=== PATIENT | female | born 1965 | race Caucasian/White ===

== ENCOUNTER 2023-12-06 11:14 | Outpatient (RCR) | payer OTHER, SELFPAY | END 2023-12-06 23:59 | disposition home or self-care (01) | LOC: ROT 11:14 | PROVIDERS: ATTENDING PHYSICIAN Physician Assistant | DX: M79.642 Pain in left hand (principal); Z73.6 Limitation of activities due to disability | CPT/HCPCS: 97166; 97535 ==

== ENCOUNTER → 2024-01-04 17:11 | Outpatient (REF) | payer OTHER, SELFPAY | LOC: RAD 17:11 | PROVIDERS: ATTENDING PHYSICIAN Physician Assistant; FAMILY PHYSICIAN Family Medicine | DX: R05.3 Chronic cough (principal) | CPT/HCPCS: 71046 ==

== ENCOUNTER 2024-01-27 09:32 | Outpatient (RCR) | payer OTHER, SELFPAY | END 2024-01-27 23:59 | disposition home or self-care (01) | LOC: ROT 09:32 | PROVIDERS: ATTENDING PHYSICIAN Physician Assistant | DX: M79.642 Pain in left hand (principal); Z73.6 Limitation of activities due to disability | CPT/HCPCS: 97018; 97035; 97110; 97535 ==

== ENCOUNTER 2024-02-23 10:55 | Outpatient (RCR) | payer OTHER, SELFPAY | END 2024-02-24 07:32 | disposition home or self-care (01) | LOC: ROT 10:55 | PROVIDERS: ATTENDING PHYSICIAN Physician Assistant | DX: M79.642 Pain in left hand (principal); Z73.6 Limitation of activities due to disability | CPT/HCPCS: 97018; 97140; 97535 ==

== ENCOUNTER → 2024-04-17 11:57 | Outpatient (REF) | payer OTHER, SELFPAY | LOC: PAVMRI 11:57 | PROVIDERS: ATTENDING PHYSICIAN Physician Assistant | DX: M79.642 Pain in left hand (principal) | CPT/HCPCS: 73218 ==

== ENCOUNTER → 2024-05-11 13:14 | Outpatient (REF) | payer OTHER, SELFPAY | LOC: WDC 13:14 | PROVIDERS: ATTENDING PHYSICIAN Physician Assistant; FAMILY PHYSICIAN Family Medicine | DX: Z12.31 Encounter for screening mammogram for malignant neoplasm of breast (principal) | CPT/HCPCS: 77063; 77067 ==

== ENCOUNTER 2024-12-17 19:46 | Emergency (ER) | payer OTHER, SELFPAY ==
[2024-12-17 19:49] VITALS: BP 159/59
[2024-12-17 20:15] LABS: % Basophils 0.7 % (0-2); % Eosinophils 1.5 % (0-6); % Immature Granulocytes 0.3 % (0-0.5); % Lymphocytes 11.4 % (20.5-51.1); % Monocytes 5.6 % (1.7-9.3); % Neutrophils 80.5 % (42.2-75.2); Absolute Basophils 0.1 10^3/uL (0-0.2); Absolute Eosinophils 0.2 10^3/uL (0-0.7); Absolute Lymphocytes 1.5 10^3/uL (1.2-3.4); Absolute Monocytes 0.7 10^3/uL (0.1-0.6); Absolute Neutrophils 10.6 10^3/uL (1.4-6.5); Hematocrit 39.7 % (37.0-47.0); Hemoglobin 13.3 g/dL (12.0-16.0); Mean Corp Hgb Conc. 33.5 g/dL (33.0-37.0); Mean Corpuscular Hgb 28.4 pg (27.0-31.0); Mean Corpuscular Volume 84.6 fL (81.0-99.0); Mean Platelet Volume 8.9 fL (7.4-10.4); Nucleated Red Blood Cells % 0 %; Platelet Count 405 10^3/uL (130-400); Red Blood Cell Count 4.69 10^6/uL (4.20-5.40); Red Cell Dist. Width 13.6 % (11.5-14.5); White Blood Cell Count 13.1 10^3/uL (4.8-10.8)
[2024-12-17 20:24] LABS: ALT (SGPT) 21 U/L (0-35); AST (SGOT) 28 U/L (14-36); Alkaline Phosphatase 107 U/L (38-126); Blood Urea Nitrogen 21 mg/dl (7-17); Calcium 10.4 mg/dl (8.4-10.2); Carbon Dioxide 24 mmol/L (22-30); Chloride 99 mmol/L (98-107); Glucose 142 mg/dl (70-99); Potassium 4.6 mmol/L (3.5-5.1); Sodium 138 mmol/L (135-145); Total Bilirubin 0.5 mg/dl (0.2-1.3); Total Protein 7.8 g/dl (6.3-8.2); eGFR > 60.00
[2024-12-17 21:41] VITALS: BMI 26.8
[2024-12-17] MEDS: TORADOL 15 MG IV (21:46)
[2024-12-17 21:48] VITALS: BP 143/79
[2024-12-17 22:23] LABS: Urine Albumin 2+ (Neg - Trace); Urine Bilirubin Negative (Negative); Urine Character Clear (Clear); Urine Color Yellow; Urine Glucose Negative (Negative); Urine Ketone Negative (Negative); Urine Leukocyte 1+ (Negative); Urine Nitrite Negative (Negative); Urine Occult Blood 4+ (Negative); Urine Urobilinogen Negative (Neg - 1+)
[2024-12-17 22:32] LABS: Urine Calcium Oxalate Crystals Present; Urine Squamous Cell None seen /LPF (Few)
[2024-12-17 22:33] LABS: Urine Red Blood Cell >100 /HPF (0-2)
[2024-12-17 22:35] LABS: Urine Bacteria Few (Negative)
[2024-12-17] MEDS: FLOMAX 0.4 MG PO (23:20)
--- NOTE | 2024-12-17 23:47 | ED.GENMED ---
History of Present Illness
General
Chief Complaint: Flank Pain
Source: patient
Exam Limitations: none
Time Seen by Provider: 12/17/24 20:59
Nursing documentation reviewed up to this point in time: agreed with
History of Present Illness
History of Present Illness:
59-year-old female presenting to the emergency department today with concerns of sudden onset of left flank pain a few hours prior to arrival to the emergency department. Also with nausea no vomiting. Denies any fevers chest pain shortness of
breath.
Past History
Past History
ED Past Medical History: Asthma
ED Past Surgical History: None
Social History
Tobacco: Non-smoker
Alcohol: None
Drug: None
Personal:
Living: with family
Review of Systems
Review of Systems
Allergies reviewed?: Yes
All Other Systems: ROS reviewed and negative except as documented in HPI and ROS
Phy Exam
Physical Exam
Physical Exam:
GENERAL: Alert , in no apparent distress
EYE: pupils equal and reactive
NECK: Supple, no significant adenopathy.
ENT: o/p clr, mmm.
CARDIAC: Regular rate and rhythm .
LUNGS: Clear breath sounds bilaterally, no acute respiratory distress, no wheezes/rales/rhonchi
ABDOMEN: Soft, without focal tenderness, no r/g, no cvat
NEUROLOGICAL: Alert and oriented, no focal neuro deficits
SKIN: Warm and dry, skin intact.
MUSCULOSKELETAL: No edema, well perfused.
PSYCH: Normal and appropriate interaction.
Course
Orders/Labs/Results
Orders:
Orders
12/17/24 19:56
CMP [Comprehensive Metabolic Panel] Urgent
Complete Blood Count/With Diff Urgent
12/17/24 21:31
CT Abd/pel Without Iv Or Oral Urgent
Comment:
Reason For Exam: left flank pain
Ketorolac [Toradol] 15 mg IV NOW STA
12/17/24 22:11
Urinalysis Reflex To Culture Urgent
Date Specimen was Collected: 12/17/24
Time Specimen was Collected: 21:40
Urine Microscopic Reflex Cult Urgent
Urine Culture Urgent
[facility] Source: U
Specimen Description:
Date Specimen was Collected: 12/17/24
Time Specimen was Collected: 21:40
12/17/24 23:05
Tamsulosin [Flomax] 0.4 mg PO NOW STA
Abnormal Lab Results
12/17/24 12/17/24
19:56 22:11
WBC 13.1 H 10^3/uL
(4.8-10.8)
Plt Count 405 H 10^3/uL
(130-400)
Absolute Neuts (auto) 10.6 H 10^3/uL
(1.4-6.5)
Absolute Monos (auto) 0.7 H 10^3/uL
(0.1-0.6)
Neutrophils % 80.5 H %
(42.2-75.2)
Lymphocytes % 11.4 L %
(20.5-51.1)
BUN 21 H mg/dl
(7-17)
Glucose 142 H mg/dl
(70-99)
Calcium 10.4 H mg/dl
(8.4-10.2)
Ur Occult Blood Reflex 4+ A
(Negative)
Leukocyte Esterase Rfl 1+ A
(Negative)
Urine RBC >100 A /HPF
(0-2)
Urine Bacteria (Reflex) Few A
(Negative)
Urine Albumin (Reflex) 2+ A
(Neg - Trace)
12/17/24 19:56
12/17/24 19:56
Vital Signs
Initial and Last Documented VS:
Initial Vital Signs
Temp Pulse Resp BP Pulse Ox
98.4 F 71 18 159/59 99
12/17/24 19:49 12/17/24 19:49 12/17/24 19:49 12/17/24 19:49 12/17/24 19:49
Last Documented Vital Signs
Temp Pulse Resp BP Pulse Ox
98.4 F 71 18 143/79 94
12/17/24 19:49 12/17/24 19:49 12/17/24 19:49 12/17/24 21:48 12/17/24 22:30
MDM/Problems Addressed
MDM/Problems Addressed:
59-year-old female presenting to the emergency department today with concerns of left-sided flank pain. Here vital signs are normal patient is afebrile slight white count of 13.1 otherwise labs without emergent findings urinalysis with red blood
cells but no evidence of infection. CT scan confirming 3 mm stone symptoms well-controlled here otherwise patient stable for outpatient management. Return precautions given.
*Critical Care Note
Total Time (30-74mins, 75-104mins- exclusive of procedures): Not Applicable
ED Attending Note
-
Portions of this chart may have been created with voice recognition software.� Occasional wrong word or��sound alike� substitutions may have occurred due to the inherent limitations of voice recognition software.
Discharge Plan
Departure
Patient Disposition: Home (Routine Discharge)
Date of Disposition: 12/17/24
Time of Disposition: 23:49
Patient with high blood pressure during this ER visit?: No
Condition: Good
Covid-19: Not Applicable
Discharge Problem:
Kidney stone
Instructions: Kidney Stones (DC), How to Strain Your Urine
Prescriptions:
New
tamsulosin [Flomax] 0.4 mg capsule
0.4 mg PO HS Qty: 7 0RF
ondansetron 4 mg tablet,disintegrating
4 mg PO Q6H PRN (Reason: nausea and vomiting) Qty: 7 0RF
ibuprofen 600 mg tablet
600 mg PO Q8H PRN (Reason: Pain) Qty: 14 0RF
No Action
prednisone 50 MG tablet
50 mg PO DAILY Qty: 4 0RF
levofloxacin [Levaquin] 500 MG tablet
500 mg PO Daily Qty: 7 0RF
albuterol sulfate [Proventil HFA] 90 MCG/PUFF HFA aerosol inhaler
1 puff inhalation Q4 Qty: 1 0RF
budesonide-formoterol [Symbicort] 1 PUFF HFA aerosol inhaler
2 puff inhalation R BID Qty: 1 0RF
codeine-guaifenesin [Guaiatussin AC] 10 ML liquid
10 ml PO Q6HPRN PRN (Reason: cough) Qty: 100 0RF
Rx Instructions:
200 mg guaifenesin/20 mg codeine per 10 mL
hydrocodone-acetaminophen 1 TABLET tablet
1 - 2 tab PO Q4HPRN PRN (Reason: severe pain) Qty: 12 0RF
Referrals:
Dav Marquez MD [Active] - Follow up in 5-7 days
Kiersten Sigala MD [Family Provider] -
Activity Restrictions/Additional Instructions:
You came to the emergency department today with concerns of kidney stone. Please take the prescribed medications and follow-up closely with urology. Return for any worsening, new or concerning symptoms.
Interventions
Interventions:
*Risk Screen - Suicide Last Done: 12/17/24 19:49
*General Assessment Last Done: 12/17/24 19:49
*Neglect/Abuse Screening Last Done: 12/17/24 21:48
*ED- Fall Risk Assessment Last Done: 12/17/24 19:49
*ED COVID-19 Vaccine History Last Done: 12/17/24 19:49
JR-Hwfoet-Rhgvndvmrl Assessment Last Done: 12/17/24 21:48
ED-Female Genitourinary Assessment Last Done: 12/17/24 21:48
Discharge Date and Time
Print Language: SERBIAN
== END 2024-12-18 00:01 | disposition home or self-care (01) ==
LOC: EMR 19:46
PROVIDERS: Emergency Medicine; Physician Assistant; EMERGENCY PHYSICIAN Emergency Medicine; FAMILY PHYSICIAN Family Medicine
DX: N20.2 Calculus of kidney with calculus of ureter (principal); J45.909 Unspecified asthma, uncomplicated
CPT/HCPCS: 96374; 99284; 74176; 80053; 81003; 81015; 85025; 87077; 87086

== ENCOUNTER 2025-01-14 09:09 | Emergency (ER) | payer OTHER, SELFPAY ==
[2025-01-14 09:15] VITALS: BP 136/81
--- NOTE | 2025-01-14 09:42 | ED.GENMED ---
History of Present Illness
<Rosmery Vickers PA-C - Last Filed: 01/14/25 14:03>
General
Chief Complaint: Abdominal Pain
Source: patient and records
Exam Limitations: none
Time Seen by Provider: 01/14/25 09:18
History of Present Illness
History of Present Illness:
59yoF with a history of asthma, hypothyroidism, and hypertension presenting for evaluation of abdominal pain. Patient was seen in the ED about a month ago for a left ureteral stone. She is able to pass the stone spontaneously. She thought she had
a UTI about 3 weeks ago and was seen by her PCP. Urinalysis only showed blood at that time without signs of infection. Her symptoms resolved for a few weeks. She started to develop pressure in her lower abdomen yesterday. Pain radiates to the
right lower back. She is also experiencing urinary urgency, feeling of incomplete voiding, and states that her urine appears very dark. Symptoms feel different than her kidney stone last month. She is otherwise asymptomatic and denies any fevers,
chills, nausea, vomiting, diarrhea, constipation.
Past History
<Sohan Orta DO - Last Filed: >
Past History
ED Past Medical History: Asthma
ED Past Surgical History: None
Social History
Tobacco: Non-smoker
Alcohol: None
Drug: None
Personal:
Living: with family
Phy Exam
<Rosmery Vickers PA-C - Last Filed: 01/14/25 14:03>
General Physical Exam
General Presentation: well appearing and no apparent distress
General age: appears stated age
General Skin: warm and dry
General Habitus: normal
General Mental: alert
ENT Exam
ENT Exam: normocephalic
Pulmonary Exam
Pulmonary Exam: no respiratory distress
Gastrointestinal Exam
Gastrointestinal Exam: soft, non distended and other (+Mild tenderness in suprapubic and RLQ regions. Abdomen soft, non-distended. No rebound or guarding. No CVA tenderness. )
Neurological Exam
Neurological Exam: alert
[place] Coma Scale
Eye Opening: Spontaneous
Verbal Response: Oriented
Motor Response: Obeys Commands
GCS Total Score: 15
Skin Exam
Skin Exam: normal color and warm/dry
Psychiatric Exam
Psychiatric Exam: normal mood/affect
Course
<Rosmery Vickers PA-C - Last Filed: 01/14/25 14:03>
Orders/Labs/Results
Orders:
Orders
01/14/25 09:44
0.9% Sodium Chloride 1000 ml [Nss] 1,000 ml IV BOLUS
01/14/25 09:45
CT Abd/pelvis W Iv Cont Urgent
Comment:
Reason For Exam: RLQ, suprapubic, R flank pain
01/14/25 09:48
Complete Blood Count/With Diff Urgent
Comprehensive Metabolic Panel Urgent
Urinalysis Reflex To Culture Urgent
Date Specimen was Collected: 01/14/25
Time Specimen was Collected: 09:46
Urine Microscopic Reflex Cult Urgent
Urine Culture Urgent
[facility] Source: U
Specimen Description:
Date Specimen was Collected: 01/14/25
Time Specimen was Collected: 09:46
Abnormal Lab Results
01/14/25
09:48
Eosinophils % 8.9 H %
(0-6)
BUN 24 H mg/dl
(7-17)
Glucose 106 H mg/dl
(70-99)
Urine Ketones 1+ A
(Negative)
Ur Occult Blood Reflex 4+ A
(Negative)
Urine Nitrite (Reflex) Positive A
(Negative)
Urine Bilirubin 1+ A
(Negative)
Leukocyte Esterase Rfl 2+ A
(Negative)
Urine RBC >100 A /HPF
(0-2)
Urine Albumin (Reflex) 3+ A
(Neg - Trace)
01/14/25 09:48
01/14/25 09:48
Vital Signs
Initial and Last Documented VS:
Initial Vital Signs
Temp Pulse Resp BP Pulse Ox
98.5 F 73 16 136/81 97
01/14/25 09:15 01/14/25 09:15 01/14/25 09:15 01/14/25 09:15 01/14/25 09:15
Last Documented Vital Signs
Temp Pulse Resp BP Pulse Ox
98.5 F 73 16 126/74 97
01/14/25 09:15 01/14/25 09:15 01/14/25 09:15 01/14/25 12:12 01/14/25 09:15
<Sohan Orta, DO - Last Filed: >
Orders/Labs/Results
Orders:
Orders
01/14/25 09:44
0.9% Sodium Chloride 1000 ml [Nss] 1,000 ml IV BOLUS
01/14/25 09:45
CT Abd/pelvis W Iv Cont Urgent
Comment:
Reason For Exam: RLQ, suprapubic, R flank pain
01/14/25 09:48
Complete Blood Count/With Diff Urgent
Comprehensive Metabolic Panel Urgent
Urinalysis Reflex To Culture Urgent
Date Specimen was Collected: 01/14/25
Time Specimen was Collected: 09:46
Urine Microscopic Reflex Cult Urgent
Urine Culture Urgent
[facility] Source: U
Specimen Description:
Date Specimen was Collected: 01/14/25
Time Specimen was Collected: 09:46
Abnormal Lab Results
01/14/25
09:48
Eosinophils % 8.9 H %
(0-6)
BUN 24 H mg/dl
(7-17)
Glucose 106 H mg/dl
(70-99)
Urine Ketones 1+ A
(Negative)
Ur Occult Blood Reflex 4+ A
(Negative)
Urine Nitrite (Reflex) Positive A
(Negative)
Urine Bilirubin 1+ A
(Negative)
Leukocyte Esterase Rfl 2+ A
(Negative)
Urine RBC >100 A /HPF
(0-2)
Urine Albumin (Reflex) 3+ A
(Neg - Trace)
01/14/25 09:48
01/14/25 09:48
Vital Signs
Initial and Last Documented VS:
Initial Vital Signs
Temp Pulse Resp BP Pulse Ox
98.5 F 73 16 136/81 97
01/14/25 09:15 01/14/25 09:15 01/14/25 09:15 01/14/25 09:15 01/14/25 09:15
Last Documented Vital Signs
Temp Pulse Resp BP Pulse Ox
98.5 F 73 16 126/74 97
01/14/25 09:15 01/14/25 09:15 01/14/25 09:15 01/14/25 12:12 01/14/25 09:15
<Rosmery Vickers PA-C - Last Filed: 01/14/25 14:03>
MDM/Problems Addressed
Differential Diagnosis Includes:
59yoF here with lower abdominal pressure x 1 day. Associated with urinary urgency/frequency. Had a kidney stone last month. VSS. She is well-appearing no acute distress. No signs of peritonitis on abdominal exam. +R CVA tenderness noted.
Differential diagnosis includes but is not limited to: UTI, pyelonephritis, kidney stone, appendicitis
Initial ED plan: Check CBC, CMP, UA, and CT abdomen with contrast. IV fluid bolus.
<Rosmery Vickers PA-C - Last Filed: 01/14/25 14:03>
*Critical Care Note
Total Time (30-74mins, 75-104mins- exclusive of procedures): Not Applicable
<Rosmery Vickers PA-C - Last Filed: 01/14/25 14:03>
Update Note
Update Note:
Labs overall unremarkable including normal white count and renal function. UA is nitrite positive with 2+ leukocytes and 4+ blood suggesting infection. CT is negative for acute findings. Specifically, there is no obstructive uropathy and appendix
appears normal. Suspect UTI as the etiology of her symptoms. She was started on a course of cefdinir. Advised follow-up with PCP and ED return precautions reviewed. Patient in agreement with plan and was discharged in stable condition.
ED Attending Note
<Sohan Orta DO - Last Filed: >
-
Portions of this chart may have been created with voice recognition software.� Occasional wrong word or��sound alike� substitutions may have occurred due to the inherent limitations of voice recognition software.
Discharge Plan
Departure
Patient Disposition: Home (Routine Discharge)
Date of Disposition: 01/14/25
Time of Disposition: 11:47
Patient with high blood pressure during this ER visit?: No
Discharge Problem:
Urinary tract infection
Instructions: Urinary tract infections in adults
Prescriptions:
New
cefdinir 300 mg capsule
300 mg PO BID Qty: 14 0RF
No Action
prednisone 50 MG tablet
50 mg PO DAILY Qty: 4 0RF
levofloxacin [Levaquin] 500 MG tablet
500 mg PO Daily Qty: 7 0RF
albuterol sulfate [Proventil HFA] 90 MCG/PUFF HFA aerosol inhaler
1 puff inhalation Q4 Qty: 1 0RF
budesonide-formoterol [Symbicort] 1 PUFF HFA aerosol inhaler
2 puff inhalation R BID Qty: 1 0RF
codeine-guaifenesin [Guaiatussin AC] 10 ML liquid
10 ml PO Q6HPRN PRN (Reason: cough) Qty: 100 0RF
Rx Instructions:
200 mg guaifenesin/20 mg codeine per 10 mL
hydrocodone-acetaminophen 1 TABLET tablet
1 - 2 tab PO Q4HPRN PRN (Reason: severe pain) Qty: 12 0RF
tamsulosin [Flomax] 0.4 mg capsule
0.4 mg PO HS Qty: 7 0RF
ondansetron 4 mg tablet,disintegrating
4 mg PO Q6H PRN (Reason: nausea and vomiting) Qty: 7 0RF
ibuprofen 600 mg tablet
600 mg PO Q8H PRN (Reason: Pain) Qty: 14 0RF
Referrals:
Kiersten Sigala MD [Family Provider] -
Activity Restrictions/Additional Instructions:
Take antibiotics as prescribed. Drink plenty of fluids and stay hydrated.
Please follow-up with your family doctor next week. Return to the ER with any new or worsening symptoms including fevers.
Interventions
Interventions:
*Risk Screen - Suicide Last Done: 01/14/25 09:15
*General Assessment Last Done: 01/14/25 09:15
*Neglect/Abuse Screening Last Done: 01/14/25 10:20
*ED- Fall Risk Assessment Last Done: 01/14/25 10:20
*ED COVID-19 Vaccine History Last Done: 01/14/25 09:15
*Nursing Disposition Last Done: 01/14/25 12:12
QE-Ifjawr-Kqjsrozsgb Assessment Last Done: 01/14/25 10:20
Discharge Date and Time
Discharge Date/Time: 01/14/25 12:13
Print Language: CHADIAN
[2025-01-14] MEDS: NSS 1000 IV (09:47)
[2025-01-14 10:05] LABS: % Basophils 1.5 % (0-2); % Eosinophils 8.9 % (0-6); % Immature Granulocytes 0.2 % (0-0.5); % Lymphocytes 33.3 % (20.5-51.1); % Monocytes 8.8 % (1.7-9.3); % Neutrophils 47.3 % (42.2-75.2); Absolute Basophils 0.1 10^3/uL (0-0.2); Absolute Eosinophils 0.6 10^3/uL (0-0.7); Absolute Lymphocytes 2.2 10^3/uL (1.2-3.4); Absolute Monocytes 0.6 10^3/uL (0.1-0.6); Absolute Neutrophils 3.1 10^3/uL (1.4-6.5); Hematocrit 37.6 % (37.0-47.0); Hemoglobin 12.4 g/dL (12.0-16.0); Mean Corpuscular Hgb 28.4 pg (27.0-31.0); Mean Corpuscular Volume 86.2 fL (81.0-99.0); Mean Platelet Volume 9.2 fL (7.4-10.4); Nucleated Red Blood Cells % 0 %; Platelet Count 328 10^3/uL (130-400); Red Blood Cell Count 4.36 10^6/uL (4.20-5.40); Red Cell Dist. Width 13.5 % (11.5-14.5); White Blood Cell Count 6.6 10^3/uL (4.8-10.8)
[2025-01-14 10:14] LABS: ALT (SGPT) 19 U/L (0-35); AST (SGOT) 23 U/L (14-36); Albumin 4.4 g/dl (3.5-5.0); Alkaline Phosphatase 63 U/L (38-126); Blood Urea Nitrogen 24 mg/dl (7-17); Calcium 9.7 mg/dl (8.4-10.2); Carbon Dioxide 28 mmol/L (22-30); Chloride 104 mmol/L (98-107); Glucose 106 mg/dl (70-99); Potassium 4.6 mmol/L (3.5-5.1); Sodium 140 mmol/L (135-145); Total Bilirubin 0.7 mg/dl (0.2-1.3); Total Protein 6.6 g/dl (6.3-8.2); eGFR > 60.00
[2025-01-14 10:20] VITALS: BP 126/74
[2025-01-14 10:20] LABS: Urine Albumin 3+ (Neg - Trace); Urine Bilirubin 1+ (Negative); Urine Character Slightly Cloudy (Clear); Urine Color Brown; Urine Glucose Negative (Negative); Urine Ketone 1+ (Negative); Urine Leukocyte 2+ (Negative); Urine Nitrite Positive (Negative); Urine Occult Blood 4+ (Negative); Urine Urobilinogen 1+ (Neg - 1+); Urine pH 6.5 (5.0-9.0)
[2025-01-14 11:47] LABS: Urine Red Blood Cell >100 /HPF (0-2)
[2025-01-14 12:12] VITALS: BP 126/74
== END 2025-01-14 12:13 | disposition home or self-care (01) ==
LOC: EMR 09:09
PROVIDERS: Physician Assistant; EMERGENCY PHYSICIAN Emergency Medicine; FAMILY PHYSICIAN Family Medicine
DX: N39.0 Urinary tract infection, site not specified (principal); E03.9 Hypothyroidism, unspecified; I10 Essential (primary) hypertension; J45.909 Unspecified asthma, uncomplicated; Z87.442 Personal history of urinary calculi
CPT/HCPCS: 96360; 99284; 74177; 80053; 81003; 81015; 85025; 87086; Q9967

== ENCOUNTER → 2025-03-13 10:17 | Outpatient (REF) | payer OTHER, SELFPAY | LOC: RAD 10:17 | PROVIDERS: ATTENDING PHYSICIAN Nurse Practitioner Family | DX: M54.12 Radiculopathy, cervical region (principal) | CPT/HCPCS: 72052 ==

== ENCOUNTER → 2025-05-08 11:12 | Outpatient (REF) | payer OTHER, SELFPAY | LOC: RAD 11:12 | PROVIDERS: ATTENDING PHYSICIAN Family Medicine; FAMILY PHYSICIAN Family Medicine | DX: M79.671 Pain in right foot (principal) | CPT/HCPCS: 73630 ==

== ENCOUNTER → 2025-05-16 15:28 | Outpatient (REF) | payer OTHER, SELFPAY | LOC: WDC 15:28 | PROVIDERS: ATTENDING PHYSICIAN Obstetrics & Gynecology; FAMILY PHYSICIAN Family Medicine | DX: Z12.31 Encounter for screening mammogram for malignant neoplasm of breast (principal) | CPT/HCPCS: 77063; 77067 ==

== ENCOUNTER 2025-05-20 12:21 | Emergency (ER) | payer OTHER, SELFPAY ==
[2025-05-20 12:22] VITALS: BP 135/90
--- NOTE | 2025-05-20 13:23 | ED.GENMED ---
History of Present Illness
General
Chief Complaint: Foreign Body Removal
Source: patient
Exam Limitations: none
Time Seen by Provider: 05/20/25 13:01
Nursing documentation reviewed up to this point in time: agreed with
History of Present Illness
History of Present Illness:
Patient is a 59-year-old female who presents to the ER for evaluation. She has had pain to the plantar aspect of the right foot for the past 2 weeks. She denies any exact injury. She saw her family doctor who thought he may have seen a splinter
and did x-rays. She had x-rays done May 08 which showed a 4.5 mm in length track of air in the plantar soft tissues of the forefoot at the level of the metatarsal head.
She was recommended to follow-up with podiatry however has not been able to get in. She does complain of some discomfort and numbness to her foot. She denies any swelling redness fever chills.
Past History
Past History
ED Past Medical History: Asthma
ED Past Surgical History: None
Social History
Tobacco: Non-smoker
Alcohol: None
Drug: None
Personal:
Living: with family
Phy Exam
General Physical Exam
General Presentation: no apparent distress
General age: appears stated age
General Skin: warm and dry
General Habitus: normal
General Mental: alert
General Hydration: appears well hydrated
Neurological Exam
Neurological Exam: alert
Musculoskeletal Exam
Musculoskeletal Exam: other (rle with strong pulses no obvious foreign body on exam to foot no swelling or redness nontender)
Skin Exam
Skin Exam: normal color and warm/dry
Psychiatric Exam
Psychiatric Exam: normal mood/affect
Course
Vital Signs
Initial and Last Documented VS:
Initial Vital Signs
Temp Pulse Resp BP Pulse Ox
98.7 F 69 17 135/90 99
05/20/25 12:22 05/20/25 12:22 05/20/25 12:22 05/20/25 12:22 05/20/25 12:22
Last Documented Vital Signs
Temp Pulse Resp BP Pulse Ox
98.7 F 69 17 135/90 99
05/20/25 12:22 05/20/25 12:22 05/20/25 12:22 05/20/25 12:22 05/20/25 14:50
MDM/Problems Addressed
Differential Diagnosis Includes:
Not limited to foreign body
MDM/Problems Addressed:
Patient presents for possible foreign body to the right foot though she denies any exact injury recent x-rays question recent foreign body. On exam she has no obvious swelling or redness there is no visualized foreign body that I see on exam. She
is very well-appearing no fevers. She has not been able to get in with podiatry. I did review x-ray report and I did speak with Dr. Wu who will be able to get patient in the office this week. Will have patient call the office. At this time
there is no indication to attempt to remove a foreign body as I do not visualize any foreign body on x-rays from May 08 do not show an exact foreign body. There is no evidence of infection and she is very well-appearing stable for discharge home
with outpatient follow-up
*Radiology
Radiology exam reviewed: radiology read reviewed (X-rays reviewed from 05/08)
*Pulse Oximetry
SaO2: 99
Oxygen Mode of Delivery: Room air
Patient hypoxic: no
*Critical Care Note
Total Time (30-74mins, 75-104mins- exclusive of procedures): Not Applicable
Patient Management
Discussion with other providers: [facility]pper Hand (Podiatry DR Wu )
ED Attending Note
-
Portions of this chart may have been created with voice recognition software.� Occasional wrong word or��sound alike� substitutions may have occurred due to the inherent limitations of voice recognition software.
Discharge Plan
Departure
Patient Disposition: Home (Routine Discharge)
Date of Disposition: 05/20/25
Time of Disposition: 14:49
Patient with high blood pressure during this ER visit?: Yes
Condition: Fair
Covid-19: Not Applicable
Discharge Problem:
Acute foot pain
Instructions: Muscle, joint, and bone pain (DC), BLOOD PRESSURE
Prescriptions:
No Action
prednisone 50 MG tablet
50 mg PO DAILY Qty: 4 0RF
levofloxacin [Levaquin] 500 MG tablet
500 mg PO Daily Qty: 7 0RF
albuterol sulfate [Proventil HFA] 90 MCG/PUFF HFA aerosol inhaler
1 puff inhalation Q4 Qty: 1 0RF
budesonide-formoterol [Symbicort] 1 PUFF HFA aerosol inhaler
2 puff inhalation R BID Qty: 1 0RF
codeine-guaifenesin [Guaiatussin AC] 10 ML liquid
10 ml PO Q6HPRN PRN (Reason: cough) Qty: 100 0RF
Rx Instructions:
200 mg guaifenesin/20 mg codeine per 10 mL
hydrocodone-acetaminophen 1 TABLET tablet
1 - 2 tab PO Q4HPRN PRN (Reason: severe pain) Qty: 12 0RF
tamsulosin [Flomax] 0.4 mg capsule
0.4 mg PO HS Qty: 7 0RF
ondansetron 4 mg tablet,disintegrating
4 mg PO Q6H PRN (Reason: nausea and vomiting) Qty: 7 0RF
ibuprofen 600 mg tablet
600 mg PO Q8H PRN (Reason: Pain) Qty: 14 0RF
cefdinir 300 mg capsule
300 mg PO BID Qty: 14 0RF
Referrals:
Verónica Sevilla DPM [Active, Podiatry]
Activity Restrictions/Additional Instructions:
Please call podiatry tomorrow to make an appointment to be seen this week for further evaluation return if any worsening of symptoms include increasing pain swelling fever chills redness.
Interventions
Interventions:
*Risk Screen - Suicide Last Done: 05/20/25 12:29
*General Assessment Last Done: 05/20/25 12:29
*Neglect/Abuse Screening Last Done: 05/20/25 12:29
*ED- Fall Risk Assessment Last Done: 05/20/25 15:28
*ED COVID-19 Vaccine History Last Done: 05/20/25 12:29
*Nursing Disposition Last Done: 05/20/25 15:28
Discharge Date and Time
Discharge Date/Time: 05/20/25 15:29
Print Language: MACEDONIAN
== END 2025-05-20 15:29 | disposition home or self-care (01) ==
LOC: EMR 12:21
PROVIDERS: EMERGENCY PHYSICIAN Emergency Medicine; PRIMARYCARE PHYSICIAN Family Medicine
DX: M79.671 Pain in right foot (principal); J45.909 Unspecified asthma, uncomplicated
CPT/HCPCS: 99282

== ENCOUNTER → 2025-06-18 14:27 | Outpatient (REF) | payer OTHER, SELFPAY | LOC: MRI 3T 14:27 | PROVIDERS: ATTENDING PHYSICIAN Nurse Practitioner; FAMILY PHYSICIAN Family Medicine | DX: D17.71 Benign lipomatous neoplasm of kidney (principal) | CPT/HCPCS: 74183; A9575 ==

== ENCOUNTER → 2025-07-10 14:05 | Outpatient (REF) | payer OTHER, SELFPAY | LOC: EMG 14:05 | PROVIDERS: ATTENDING PHYSICIAN Podiatrist Foot & Ankle Surgery; FAMILY PHYSICIAN Family Medicine | DX: M54.17 Radiculopathy, lumbosacral region (principal); R20.0 Anesthesia of skin; G60.8 Other hereditary and idiopathic neuropathies; R20.2 Paresthesia of skin | CPT/HCPCS: 95886; 95910 ==

== ENCOUNTER → 2025-08-21 14:05 | Outpatient (REF) | payer OTHER, SELFPAY | LOC: RAD 14:05 | PROVIDERS: ATTENDING PHYSICIAN Physician Assistant; FAMILY PHYSICIAN Family Medicine | DX: R35.0 Frequency of micturition (principal); R10.A1 Flank pain, right side; R31.29 Other microscopic hematuria | CPT/HCPCS: 76770 ==

== ENCOUNTER → 2025-09-10 13:53 | Outpatient (REF) | payer OTHER, SELFPAY | LOC: RAD 13:53 | PROVIDERS: ATTENDING PHYSICIAN Student in an Organized Health Care Education/Training Program; FAMILY PHYSICIAN Family Medicine | DX: N20.0 Calculus of kidney (principal) | CPT/HCPCS: 74176 ==